=== PATIENT | male | born 1985 | race Caucasian/White ===

== ENCOUNTER 2019-07-09 04:30 | Emergency (ER) | payer SELFPAY ==
[~2019-07-09] VITALS: Ht 188 cm; Wt 70.0 kg
--- NOTE | 2019-07-09 04:52 | NUR ---
RN to bedside, patient resting comfortably in bed, changed complete into hospital gown. Patient's belongings placed into belongings bag and then placed in locked belongings storage. RN then explained process, including seeing a provider next, eventually speaking with pyschiatric personel either over telecommunications or in person. patient and family verbalized understanding. Patient is alert, oriented and answers questions clearly and concisely. Patient appears neither anxious or agitated at this time.
--- NOTE | 2019-07-09 05:26 | NUR ---
Midlevel provider to bedside. Relayed to RN orders to be placed for labs and urinalysis. RN returned to the bedside with urinalysis cup and relayed directions on how to provide sample. Patient provided with two cups of water and a warm blanket. Awaiting phlebotomists and urine sample
[2019-07-09 06:12] LABS: BASOPHILS # (AUTO) 0.03 x10^3/uL (0-0.1); BASOPHILS % (AUTO) 0 % (0-1); EOSINOPHILS # (AUTO) 0.09 x10^3/uL (0-0.4); EOSINOPHILS % (AUTO) 1 % (1-7); LYMPHOCYTES # (AUTO) 1.02 x10^3/uL (1-3.4); LYMPHOCYTES % (AUTO) 9 % (22-44); MD NO; MEAN CORPUSCULAR HEMOGLOBIN 31.3 pg (27.5-34.5); MEAN CORPUSCULAR HGB CONC 34.6 g/dL (33.2-36.2); MEAN CORPUSCULAR VOLUME 90.3 fL (81-97); MEAN PLATELET VOLUME 7.1 fL (7.4-10.4); MONOCYTES # (AUTO) 0.68 x10^3/uL (0.2-0.8); MONOCYTES % (AUTO) 6 % (2-9); NEUTROPHILS # (AUTO) 9.16 x10^3/uL (1.8-6.8); NEUTROPHILS % (AUTO) 84 % (42-75); PLATELET COUNT 310 x10^3/uL (130-400); RED BLOOD COUNT 4.88 x10^6/uL (4.38-5.82); RED CELL DISTRIBUTION WIDTH 12.9 % (9.4-14.8)
[2019-07-09 06:24] LABS: ALBUMIN 4.2 g/dL (3.4-5.0); ANION GAP 10 mmol/L (5-15); CHLORIDE 106 mmol/L (98-107)
[2019-07-09 06:26] LABS: SALICYLATE LEVEL < 1.7 mg/dL (2.8-20.0)
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
[2019-07-09 07:25] VITALS: BP 141/92
[2019-07-09 07:51] LABS: AMPHETAMINE SCREEN, URINE Negative (Negative); BARBITURATE SCREEN, URINE Negative (Negative); BENZODIAZEPINE SCREEN, URINE Negative (Negative); CANNABINOID SCREEN, URINE Negative (Negative); COCAINE SCREEN, URINE Negative (Negative); METHADONE SCREEN, URINE Negative (Negative); OPIATE SCREEN, URINE Negative (Negative)
--- NOTE | 2019-07-09 09:18 | NUR ---
REMAINS IN SITE OF SITTER. PARENTS VISITING
--- NOTE | 2019-07-09 10:11 | NUR ---
REORT TO BRIANA HUSSEIN
--- NOTE | 2019-07-09 10:11 | NUR ---
REPORT FROM DESIREE
--- NOTE | 2019-07-09 11:34 | NUR ---
PT HAS FAMILY AT BEDSIDE, SITTER PRESENT
[2019-07-09] MEDS ORDERED: FLUOXETINE 10 MG CAP ONE (12:20)
[2019-07-09] MEDS ORDERED: FLUOXETINE HCL 20 MG CAPSULE PO SCH (12:30)
[2019-07-09] MEDS ORDERED: HYDROXYZINE PAMOATE 50MG CAP PO PRN (12:30)
[2019-07-09] MEDS ORDERED: TRAZODONE 50MG TABLET PO PRN (12:30)
[2019-07-09] MEDS ORDERED: FLUOXETINE HCL 20 MG CAPSULE ONE (12:32)
--- NOTE | 2019-07-09 12:36 | NUR ---
GIVEN MEAL TRAY, MEDICATED PER ORDERS. SITTER PRESENT. NO NEEDS AT THIS TIME
--- NOTE | 2019-07-09 13:17 | NUR ---
FAMILY TOOK PT CELL PHONE HOME. BELONGINGS BACK IN LOCKER
--- NOTE | 2019-07-09 14:15 | NUR ---
PACKET FAXED TO [facility]
--- NOTE | 2019-07-09 14:30 | NUR ---
PT WATCHING TV, FAMILY LEFT,. SITTER PRESENT
--- NOTE | 2019-07-09 15:38 | NUR ---
FAMILY BACK VISITING PT. NO NEEDS AT THIS TIME. SITTER PRESENT
--- NOTE | 2019-07-09 16:00 | NUR ---
PARENT REQUESTING INFO ABOUT [facility], THEY ARE GOING TO SELF PAY FOR PT.
--- NOTE | 2019-07-09 17:00 | NUR ---
PT RESTING, NO NEEDS AT THIS TIME. SITTER PRESENT
--- NOTE | 2019-07-09 18:01 | NUR ---
REPORT TO MAIRA AT [facility],
--- NOTE | 2019-07-09 18:47 | NUR ---
TRANSFERED TO [facility] VIA [facility]. ALL BELONGINGS GIVEN TO PARENTS.
== END 2019-07-09 18:49 | disposition home or self-care (01) ==
LOC: ED 04:56
DX: F32.2 Major depressive disorder, single episode, severe without psychotic features (principal)
CPT/HCPCS: 36415; 80048; 80307; 82040; 85025; 99284